=== PATIENT | female | born 1965 | race Caucasian/White ===

== ENCOUNTER 2018-05-30 13:01 | Emergency (ER) | payer OTHER ==
[~2018-05-30] VITALS: Ht 177.8 cm; Wt 61.2 kg
[~2018-05-30 13:01] MED LIST: ACETAMINOPHEN-1 EAC1 PO; ADVAIR 250-501 EACH; BACTRIM DS TAB1 EACH PO; FLONASE; FLONASE 0.05%50 MCG NASAL; FOSAMAX 70 MG T70 MG PO; HYDROCODON-ACE1 EACH PO; LORTAB 5-500 T1 EAC1 PO; OMEPRAZOLE40 MG PO; PROAIR HFA8.5 GM IH
[2018-05-30 13:51] LABS: ABSOLUTE EOSINOPHILS 0.2 thou/uL (0.0-0.7); ABSOLUTE LYMPHOCYTES 1.4 thou/uL (0.8-5.3); ABSOLUTE MONOCYTES 0.5 thou/uL (0.0-1.2); BASOPHILS 0.4 %; EOSINOPHILS 3.9 %; HEMATOCRIT 37.6 % (37.0-47.0); HEMOGLOBIN 12.8 gm/dL (12.0-15.0); LYMPHOCYTES 27.4 %; MCH 32.6 pg (26.0-34.0); MCV 95.7 fL (80.0-100.0); MONOCYTES 10.5 %; NUCLEATED RBCS 0 /100WBC; PLATELET COUNT* 289 thou/uL (150-400); POLYS 57.8 %; RBC 3.93 mil/uL (4.20-5.00); RDW-CV 12.8 % (10.5-14.5); WBC 5.2 thou/uL (4.0-11.0)
[2018-05-30 14:08] LABS: ALBUMIN 3.8 g/dL (3.4-5.0); CALCIUM 8.5 mg/dL (8.5-10.1); CREATININE 0.9 mg/dL (0.6-1.3); POTASSIUM 3.9 mmol/L (3.5-5.1); TOTAL BILIRUBIN 0.3 mg/dL (<0.1-1.0); TOTAL PROTEIN 7.5 g/dL (6.4-8.2)
[2018-05-30] MEDS ORDERED: PREDNISONE 20 M20 MG PO (14:14)
[2018-05-30] MEDS ORDERED: PEPCID40 MG PO (14:14)
[2018-05-30 14:25] VITALS: BP 159/80
== END 2018-05-30 14:25 | disposition home or self-care (01) ==
LOC: M.ERS 13:01
PROVIDERS: Nurse Practitioner Family
DX: L23.9 Allergic contact dermatitis, unspecified cause (principal); J45.909 Unspecified asthma, uncomplicated; Z90.710 Acquired absence of both cervix and uterus; Z98.890 Other specified postprocedural states; Z88.1 Allergy status to other antibiotic agents; Z88.0 Allergy status to penicillin; Z91.041 Radiographic dye allergy status